=== PATIENT | male | born 1980 | race Caucasian/White ===

== ENCOUNTER 2018-06-21 13:20 | Emergency (ER) | payer BC ==
[~2018-06-21] VITALS: Ht 190.5 cm; Wt 95.3 kg
[2018-06-21] MEDS ORDERED: IV NORMAL SALINE 1000ML BAG 1,000 ML IV ONE ×2 (14:00)
[2018-06-21] MEDS ORDERED: IBUPROFEN 600 MG TABLET. PO ONE (14:00)
[2018-06-21 14:31] LABS: BASO # 0.1 x10^3/uL (0.0-0.2); BASO % 1 % (0-3); EOS % 0 % (0-3); HEMATOCRIT 48.4 % (39.0-53.0); HEMOGLOBIN 15.9 g/dL (13.0-17.5); LYMPH # 0.5 x10^3/uL (1.0-4.8); LYMPH % 5 % (24-48); MEAN CORPUSCULAR HEMOGLOBIN 29 pg (25-35); MEAN CORPUSCULAR HGB CONC 33 g/dL (31-37); MEAN CORPUSCULAR VOLUME 89 fL (79-100); MONO # 1.1 x10^3/uL (0.0-1.1); MONO % 12 % (0-9); NEUT # 7.2 x10^3uL (1.8-7.7); NEUT % 82 % (31-73); PLATELET COUNT 298 x10^3/uL (140-400); RED BLOOD COUNT 5.44 x10^6/uL (4.30-5.70); WHITE BLOOD COUNT 8.8 x10^3/uL (4.0-11.0)
--- NOTE | 2018-06-21 14:41 | PHYS DOC ---
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 Pt reports his head is throbbing- denies vision ch anges/tinnitus. Reports he has felt fatigued and feverish. He reports he hasn't had appetite with less fluid intake. Reports less urine output denying hematuria/dysuria. He denies abd pain, N/V/D, or palpitations. He denies recent travel. He denies exposure to others with similar illness. Pt reports he did meth 2 days ago- denies alcohol. Reports he is a smoker. Pt reports he took tylenol 500mg at 12 p.m. and he had an old Rx for amoxicillin so he took 1 of those also. Review of Systems Review of Systems Constitutional: Reports felt feverish w/chills. Reports generalized fatigue Eyes: Denies change in visual acuity, redness, or eye pain [] HENT: Denies nasal congestion or sore throat [] Respiratory: Reports nonprod. cough with SOA Cardiovascular: Reports chest pain with coughing episodes GI: Denies abdominal pain, nausea, vomiting, bloody stools or diarrhea [] : Denies dysuria or hematuria. Reports less urine output Musculoskeletal: Reports generalized body aches- denies neck/joint stiffness Integument: Denies rash or skin lesions [] Neurologic: Denies focal weakness or sensory changes. Reports throbbing/diffuse AHUJA- denies dizziness Endocrine: Denies polyuria or polydipsia [] All other systems were reviewed and found to be within normal limits, except as documented in this note. Current Medications Current Medications Current Medications Medications (Trade) Dose Ordered Sig/Estrella Start Time Stop Time Status Last Admin Dose Admin Diphenhydramine HCl (Benadryl) 25 mg 1X ONCE 06/21/18 15:00 06/21/18 15:01 DC 06/21/18 15:07 25 MG Ibuprofen (Motrin) 600 mg 1X ONCE 06/21/18 14:00 06/21/18 14:01 DC 06/21/18 14:11 600 MG Metoclopramide HCl (Reglan Vial) 10 mg 1X ONCE 06/21/18 15:00 06/21/18 15:01 DC 06/21/18 15:07 10 MG Sodium Chloride 1,000 ml @ 1,000 mls/hr 1X ONCE 06/21/18 14:00 06/21/18 14:59 DC 06/21/18 15:07 1,000 MLS/HR Allergies Allergies Allergies Coded Allergies Type Severity Reaction Last Updated Verified No Known Drug Allergies 06/21/18 No Physical Exam Physical Exam Constitutional: Well developed, well nourished, no acute distress, non-toxic appearance- anxious. Fatigued appearance HENT: Normocephalic, atraumatic, bilateral ears normal, mucous membranes pink/dry- no pharyngeal swelling/erythema, no oral exudates, nose normal. [] Eyes: PERRLA, EOMI- no pain with eye movements, no nystagmus, conjunctiva normal, no discharge. [] Neck: Normal range of motion, no tenderness/nuchal rigidity, supple, no s tridor/gross adenopathy Cardiovascular:Tachycardic heart rate regular rhythm, no murmur [] Lungs & Thorax: Bilateral breath sounds clear to auscultation- resp. equal/nonlabored Abdomen: Bowel sounds normal, soft, no tenderness/distention, no masses, no pulsatile masses. [] Skin: Warm, dry, no erythema, no rash. [] Back: No tenderness, no CVA tenderness. [] Extremities: No tenderness, no cyanosis, no clubbing, ROM intact, no edema. [] Neurologic: Alert and oriented X 3, normal motor function, normal sensory function, no focal deficits noted. [] Psychologic: Affect normal, judgement normal, anxious during exam- no uncontr ollable behavior. Cooperative during exam Current Patient Data Vital Signs Lab Values Laboratory Tests Test 06/21/18 14:01 06/21/18 14:15 06/21/18 15:05 Influenza Type A Antigen Positive (NEGATIVE) Influenza Type B Antigen Negative (NEGATIVE) White Blood Count 8.8 x10^3/uL (4.0-11.0) Red Blood Count 5.44 x10^6/uL (4.30-5.70) Hemoglobin 15.9 g/dL (13.0-17.5) Hematocrit 48.4 % (39.0-53.0) Mean Corpuscular Volume 89 fL (79-100) Mean Corpuscular Hemoglobin 29 pg (25-35) Mean Corpuscular Hemoglobin Concent 33 g/dL (31-37) Red Cell Distribution Width 14.0 % (11.5-14.5) Platelet Count 298 x10^3/uL (140-400) Neutrophils (%) (Auto) 82 % (31-73) H Lymphocytes (%) (Auto) 5 % (24-48) L Monocytes (%) (Auto) 12 % (0-9) H Eosinophils (%) (Auto) 0 % (0-3) Basophils (%) (Auto) 1 % (0-3) Neutrophils # (Auto) 7.2 x10^3uL (1.8-7.7) Lymphocytes # (Auto) 0.5 x10^3/uL (1.0-4.8) L Monocytes # (Auto) 1.1 x10^3/uL (0.0-1.1) Eosinophils # (Auto) 0.0 x10^3/uL (0.0-0.7) Basophils # (Auto) 0.1 x10^3/uL (0.0-0.2) D-Dimer (Hali) 0.27 ug/mlFEU (0.00-0.50) Sodium Level 136 mmol/L (136-145) Potassium Level 4.1 mmol/L (3.5-5.1) Chloride Level 98 mmol/L (98-107) Carbon Dioxide Level 29 mmol/L (21-32) Anion Gap 9 (6-14) Blood Urea Nitrogen 14 mg/dL (8-26) Creatinine 1.2 mg/dL (0.7-1.3) Estimated GFR (Cockcroft-Gault) 68.5 BUN/Creatinine Ratio 12 (6-20) Glucose Level 108 mg/dL (70-99) H Lactic Acid Level 1.2 mmol/L (0.4-2.0) Calcium Level 10.0 mg/dL (8.5-10.1) Total Bilirubin 0.4 mg/dL (0.2-1.0) Aspartate Amino Transferase (AST) 18 U/L (15-37) Alanine Aminotransferase (ALT) 38 U/L (16-63) Alkaline Phosphatase 61 U/L (46-116) Creatine Kinase 89 U/L (39-308) Creatine Kinase MB (Mass) 1.1 ng/mL (0.0-3.6) Creatine Kinase MB Relative Index 1.2 % (0-4) Troponin I Quantitative < 0.017 ng/mL (0.000-0.055) Total Protein 8.4 g/dL (6.4-8.2) H Albumin 4.2 g/dL (3.4-5.0) Albumin/Globulin Ratio 1.0 (1.0-1.7) Urine Color Yellow Urine Clarity Clear Urine pH 8.0 Urine Specific [place] 1.025 Urine Protein Negative mg/dL (NEG-TRACE) Urine Glucose (UA) Negative mg/dL (NEG) Urine Ketones (Stick) Negative mg/dL (NEG) Urine Blood Negative (NEG) Urine Nitrite Negative (NEG) Urine Bilirubin Negative (NEG) Urine Urobilinogen Dipstick 0.2 mg/dL (0.2 mg/dL) Urine Leukocyte Esterase Negative (NEG) Urine RBC Rare /HPF (0-2) Urine WBC 1-4 /HPF (0-4) Urine Squamous Epithelial Cells Occ /LPF Urine Bacteria 0 /HPF (0-FEW) Urine Mucus Slight /LPF Urine Opiates Screen Neg (NEG) Urine Methadone Screen Neg (NEG) Urine Barbiturates Neg (NEG) Urine Phencyclidine Screen Neg (NEG) Urine Amphetamine/Methamphetamine Pos (NEG) Urine Benzodiazepines Screen Neg (NEG) Urine Cocaine Screen Neg (NEG) Urine Cannabinoids Screen Neg (NEG) Urine Ethyl Alcohol Neg (NEG) Laboratory Tests 06/21/18 14:15 Laboratory Tests 06/21/18 14:15 Microbiology 06/21/18 Blood Culture - Final, Complete NO GROWTH AFTER 5 DAYS EKG EKG EKG obtained 06/21/[address] Browne Sinus tachycardia Rate 117 No STEMI Radiology/Procedures Radiology/Procedures PROCEDURE: CHEST AP ONLY EXAM: CHEST 1 VIEW History: Shortness of breath COMPARISON: None available. TECHNIQUE: Single portable radiograph of the chest FINDINGS: The cardiac silhouette is unremarkable. The lungs are clear bilaterally. The costophrenic sulci are clear and well demarcated. IMPRESSION: No radiographic evidence of an acute cardiopulmonary process. Electronically signed by: Rupert Barrientos MD (06/21/2018 3:59 PM) [id number] DICTATED and SIGNED BY: RUPERT BARRIENTOS MD DATE: 06/21/18 9214 Course & Med Decision Making Course & Med Decision Making Pertinent Labs and Imaging studies reviewed. (See chart for details) 1445: Patient was tested for influenza and was found to be positive for influenza A. This was discussed with patient. Patient is complaining of diffuse headache will provide dose of Benadryl and Reglan along with a second liter of IV fluids. Patient was provided with dose of ibuprofen during initial exam. Labs are pending. Patient remains alert and oriented 3. 1525: Patient was evaluated in the ER for flulike illness and reported he had smoked meth 2 days ago and has not been drinking much fluids since. Patient tested positive for flu A- test results were discussed with pt. EKG with no acute ST elevation/STEMI and troponin <0.017; DDimer 0.27; chest xray no acute findings and labs unremarkable with WBCs NL at 8.8 with NL lactic acid at 1.2. CK NL at 89 which was checked d/t pt's recent drug use. Pt has had no resp. distress with clear bilat. lung sounds in all lung krue[place]. While in the ER he was provided with 2 L normal saline and treatment for headache HR improved foll owing flds. At this time patient reports symptoms much improved he is not anxious and his fiance at bedside states he is feeling much better and appears much improved since receiving txs. Discussed flu diagnosis and drug cessation. Encouraged patient to increase fluid intake. Patient advised on outpatient drug treatment programs and smoking/drug cessation was discussed. Education on symptomatic treatment with Tylenol and ibuprofen. Heart rate 103 O2 sat 100% on RA at this time and patient is in no visible distress. Patient remains alert and oriented 3 and at this time is denying any chest pain or shortness of air. Discussed discharge plan and patient is comfortable with this. Education pro vided on signs and symptoms to return to ER for and discharge instructions were discussed. Will provide patient with prescription for Tamiflu. Chest xray was obtained prior to discharge with report of no acute findings. Dragon Disclaimer Dragon Disclaimer This electronic medical record was generated, in whole or in part, using a voice recognition dictation system. Departure Departure Impression: Primary Impression: Influenza A Additional Impressions: Drug abuse Dehydration Disposition: HOME, SELF-CARE Condition: STABLE Referrals: UNKNOWN PCP NAME (PCP) Patient Instructions: Dehydration, Adult, Drug Abuse and Addiction-SportsMed, Influenza, Adult Additional Instructions: Avoid smoking meth. Consider outpatient treatment program to assist with your addiction and for support. Drink plenty of water and eat well balanced meals. Tylenol and ibuprofen as needed for pain and fever as directed on container. Scripts Oseltamivir Phosphate (TAMIFLU) 75 Mg Capsule 1 CAP PO BID, #10 CAP 0 Refills Prov: ANAM PINEDA APRN 06/21/18 Problem Qualifiers ANAM PINEDA APRN Jun 21, 2018 14:41
[2018-06-21 14:42] LABS: INFLUENZA A PATIENT POSITIVE (NEGATIVE); INFLUENZA B PATIENT NEGATIVE (NEGATIVE)
[2018-06-21 14:43] LABS: CREATININE 1.2 mg/dL (0.7-1.3); GFR 68.5; POTASSIUM 4.1 mmol/L (3.5-5.1)
[2018-06-21 14:50] LABS: ALBUMIN 4.2 g/dL (3.4-5.0); TOTAL BILIRUBIN 0.4 mg/dL (0.2-1.0); TOTAL PROTEIN 8.4 g/dL (6.4-8.2)
[2018-06-21] MEDS ORDERED: METOCLOPRAMIDE HCL 10 MG/2 ML VIAL. IV ONE (15:00)
[2018-06-21] MEDS ORDERED: diphenhydrAMINE 50 MG/ML VIAL IVP ONE (15:00)
[2018-06-21 15:11] LABS: BILIRUBIN,URINE NEGATIVE (NEG); CLARITY,URINE CLEAR; COLOR,URINE YELLOW; NITRITE,URINE NEGATIVE (NEG); PROTEIN,URINE NEGATIVE (NEG-TRACE); UROBILINOGEN,URINE 0.2 mg/dL (0.2 mg/dL)
[2018-06-21 15:16] LABS: BARBITURATES NEG (NEG); BENZODIAZEPINES NEG (NEG); CANNABINOIDS NEG (NEG); COCAINE NEG (NEG); METHADONE NEG (NEG); OPIATES NEG (NEG); PHENCYCLIDINE NEG (NEG)
[2018-06-21 15:17] LABS: RBC,URINE RARE /HPF (0-2)
[2018-06-21 15:18] LABS: BACTERIA,URINE 0 /HPF (0-FEW); SQUAMOUS EPITHELIAL CELL,UR OCC /LPF
[2018-06-21 15:19] LABS: AMPHETAMINE/METHAMPHETAMINE POS (NEG)
[2018-06-21] MEDS ORDERED: OSEL75CA PO (15:41)
--- NOTE | 2018-06-21 16:02 | RAD ---
EXAM: CHEST 1 VIEW History: Shortness of breath COMPARISON: None available. TECHNIQUE: Single portable radiograph of the chest FINDINGS: The cardiac silhouette is unremarkable. The lungs are clear bilaterally. The costophrenic sulci are clear and well demarcated. IMPRESSION: No radiographic evidence of an acute cardiopulmonary process. Electronically signed by: Rupert Barrientos MD (06/21/2018 3:59 PM) [place] [id number]
--- NOTE | 2018-06-21 16:14 | EKG ---
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
[2018-06-21 16:45] VITALS: BP 108/64
== END 2018-06-21 16:46 | disposition home or self-care (01) ==
LOC: ER 13:20
DX: J10.1 Influenza due to other identified influenza virus with other respiratory manifestations (principal); E86.0 Dehydration; F15.20 Other stimulant dependence, uncomplicated
CPT/HCPCS: 36415; 71045; 80053; 80307; 81001; 82553; 83605; 84484; 85025; 85379; 87040; 87804; 93005; 96361; 96374; 96375; 99284; J1200; J2765; J7030

== ENCOUNTER 2018-12-11 18:27 | Emergency (ER) | payer BC ==
[~2018-12-11] VITALS: Ht 190.5 cm; Wt 90.7 kg
[~2018-12-11 18:27] MED LIST: OSEL75CA PO
[2018-12-11] MEDS ORDERED: IV NORMAL SALINE 1000ML BAG 1,000 ML IV ONE ×2 (19:45→21:30)
[2018-12-11 19:47] LABS: BASO % 0 % (0-3); EOS % 0 % (0-3); HEMATOCRIT 43.8 % (39.0-53.0); HEMOGLOBIN 14.7 g/dL (13.0-17.5); LYMPH # 0.7 x10^3/uL (1.0-4.8); LYMPH % 7 % (24-48); MEAN CORPUSCULAR HEMOGLOBIN 30 pg (25-35); MEAN CORPUSCULAR HGB CONC 34 g/dL (31-37); MEAN CORPUSCULAR VOLUME 90 fL (79-100); MONO # 0.7 x10^3/uL (0.0-1.1); MONO % 8 % (0-9); NEUT # 8.5 x10^3/uL (1.8-7.7); NEUT % 85 % (31-73); PLATELET COUNT 305 x10^3/uL (140-400); RED BLOOD COUNT 4.89 x10^6/uL (4.30-5.70); RED CELL DISTRIBUTION WIDTH 14.1 % (11.5-14.5); WHITE BLOOD COUNT 9.9 x10^3/uL (4.0-11.0)
[2018-12-11 19:59] LABS: CREATININE 1.1 mg/dL (0.7-1.3); GFR 75.3; POTASSIUM 3.4 mmol/L (3.5-5.1)
[2018-12-11 20:06] LABS: ALBUMIN 3.7 g/dL (3.4-5.0); ALBUMIN/GLOBULIN RATIO 0.9 (1.0-1.7); TOTAL BILIRUBIN 0.3 mg/dL (0.2-1.0); TOTAL PROTEIN 7.6 g/dL (6.4-8.2)
[2018-12-11 20:15] LABS: % BANDS 8 % (0-9); % LYMPHS 9 % (24-48); % MONOS 5 % (0-10); % SEGS 78 % (35-66); PLT ESTIMATE ADEQUATE (ADEQUATE); PROTHROMBIN TIME PATIENT 12.9 SEC (11.7-14.0)
[2018-12-11] MEDS ORDERED: ONDANSETRON PF 4 MG/2 ML VIAL. IV ONE (20:15)
[2018-12-11 20:18] LABS: D-DIMER 1.02 ug/mlFEU (0.00-0.50)
[2018-12-11] MEDS ORDERED: LIDO:MAALOX 1:1 20 ML SINGLE DOSE. SWSW ONE (21:30)
[2018-12-11] MEDS ORDERED: IOHEXOL 350 MG/ML 100 ML VIAL. IV ONE (21:45)
[2018-12-11] MEDS ORDERED: CONTRAST GIVEN. MC PRN (21:45)
[2018-12-11] MEDS ORDERED: ACETAMINOPHEN 500 MG TABLET PO ONE (22:15)
--- NOTE | 2018-12-11 22:28 | RAD ---
Exam: CT of chest with contrast INDICATION: Elevated d-dimer TECHNIQUE: Sequential axial images through the chest obtained following the administration of 100 mL of Omnipaque 350 IV contrast. Sagittal and coronal reformatted images were reconstructed from the axial data and reviewed. Three-D reformatted images were constructed from the axial data and reviewed. Comparisons: None FINDINGS: Visualized portions of the thyroid are unremarkable. No enlarged mediastinal lymph nodes. Heart size is normal. No pericardial effusion. Thoracic aorta has a normal course and caliber. Pulmonary artery is not enlarged. No pulmonary embolus identified within the main, lobar or segmental pulmonary arteries. Paraseptal emphysematous change noted within the upper lungs. Airways are patent. Strandy opacities at the right lung base likely representing atelectasis. Additional history and less opacity at the right lung base. No pleural effusion or thickening. Visualized upper abdomen is unremarkable. No suspicious osseous lesions or acute fractures. IMPRESSION: 1. No pulmonary embolus identified within the main, lobar or segmental pulmonary arteries. 2. Right lung base atelectasis with groundglass opacity may represent overlying infectious process. Exposure: One or more of the following in the visualized dose reduction techniques were utilized for this examination: 1. Automated exposure control 2. Adjustment of the MA and/or KV according to patient size 3. Use of iterative of reconstructive technique Electronically signed by: Faustino Sarah MD (12/11/2018 10:25 PM) [facility]
--- NOTE | 2018-12-11 22:40 | PHYS DOC ---
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 He states that he returned yesterday after being in the [facility] on a 2 day float trip. During float trip he thinks that he swallowed some of the river water and that is what is making him sick. He smoked some methamphetamine yesterday in an attempt to feel better. Pt states he smokes meth every day. He complains of upper abdominal pain, nausea, and diarrhea. He denies any vomiting. He rates his pain a 10/10 on the pain scale, he denies any alleviating or exacerbating factors, the discomfort is constant. ROS Pt denies fever, cough, shortness of breath, or vomiting. He reports dizziness and states that he has had 2 episodes of diarrhea today. He denies any blood in his stools. He also complains of a headache at this time, he denies any vision changes, numbness, tingling, or weakness. All other ROS is neg unless otherwise noted in HPI. (REYNALDO SHAY APRN) Review of Systems Review of Systems See Above (REYNALDO SHAY APRN) Current Medications Current Medications Current Medications Medications (Trade) Dose Ordered Sig/Estrella Start Time Stop Time Status Last Admin Dose Admin Acetaminophen (Tylenol) 1,000 mg 1X ONCE 12/11/18 22:15 12/11/18 22:16 DC 12/11/18 22:15 1,000 MG Info (CONTRAST GIVEN -- Rx MONITORING) 1 each PRN DAILY PRN 12/11/18 21:45 12/11/18 23:30 DC Iohexol (Omnipaque 350 Mg/ml) 100 ml 1X ONCE 12/11/18 21:45 12/11/18 21:46 DC 12/11/18 22:03 100 ML Multi-Ingredient Mouthwash/Gargle (Gi Cocktail) 20 ml 1X ONCE 12/11/18 21:30 12/11/18 21:31 DC 12/11/18 21:32 20 ML Ondansetron HCl (Zofran) 4 mg 1X ONCE 12/11/18 20:15 12/11/18 20:16 DC 12/11/18 19:43 4 MG Sodium Chloride 1,000 ml @ 1,000 mls/hr 1X ONCE 12/11/18 21:30 12/11/18 22:29 DC 12/11/18 21:22 1,000 MLS/HR (GEOVANNY NÚÑEZ DO) Allergies Allergies Allergies Coded Allergies Type Severity Reaction Last Updated Verified No Known Drug Allergies 06/21/18 No (GEOVANNY NÚÑEZ DO) Physical Exam Physical Exam See Above Constitutional: Well developed, well nourished, no acute distress, non-toxic appearance. [] HENT: Normocephalic, atraumatic, bilateral external ears normal, oropharynx dry, nose normal Eyes: PERRLA, EOMI, conjunctiva normal, no discharge. [] Neck: Normal range of motion, no stridor. [] Cardiovascular:Heart rate tachycardic rhythm, no murmur [] Lungs & Thorax: Bilateral breath sounds clear to auscultation [] Abdomen: Bowel sounds normal, soft, epigastric tenderness, no rebound tenderness, no guarding, no masses, no pulsatile masses. [] Skin: Warm, dry, no erythema, no rash. [] Back: No CVA tenderness. [] Extremities: No cyanosis, no clubbing, ROM intact, no edema. [] Neurologic: Alert and oriented X 3, no focal deficits noted. [] Psychologic: Affect normal, judgement normal, mood normal. [] (REYNALDO SHAY APRN) Current Patient Data Vital Signs Vital Signs Date Time Temp Pulse Resp B/P (MAP) Pulse Ox O2 Delivery O2 Flow Rate FiO2 12/11/18 22:53 76 22 132/79 (96) 93 Room Air 12/11/18 19:04 98.7 98.7 (GEOVANNY NÚÑEZ DO) Lab Values Laboratory Tests Test 12/11/18 19:10 12/11/18 22:43 White Blood Count 9.9 x10^3/uL (4.0-11.0) Red Blood Count 4.89 x10^6/uL (4.30-5.70) Hemoglobin 14.7 g/dL (13.0-17.5) Hematocrit 43.8 % (39.0-53.0) Mean Corpuscular Volume 90 fL (79-100) Mean Corpuscular Hemoglobin 30 pg (25-35) Mean Corpuscular Hemoglobin Concent 34 g/dL (31-37) Red Cell Distribution Width 14.1 % (11.5-14.5) Platelet Count 305 x10^3/uL (140-400) Neutrophils (%) (Auto) 85 % (31-73) H Lymphocytes (%) (Auto) 7 % (24-48) L Monocytes (%) (Auto) 8 % (0-9) Eosinophils (%) (Auto) 0 % (0-3) Basophils (%) (Auto) 0 % (0-3) Neutrophils # (Auto) 8.5 x10^3/uL (1.8-7.7) H Lymphocytes # (Auto) 0.7 x10^3/uL (1.0-4.8) L Monocytes # (Auto) 0.7 x10^3/uL (0.0-1.1) Eosinophils # (Auto) 0.0 x10^3/uL (0.0-0.7) Basophils # (Auto) 0.0 x10^3/uL (0.0-0.2) Segmented Neutrophils % 78 % (35-66) H Band Neutrophils % 8 % (0-9) Lymphocytes % 9 % (24-48) L Monocytes % 5 % (0-10) Platelet Estimate Adequate (ADEQUATE) Prothrombin Time 12.9 SEC (11.7-14.0) Prothrombin Time INR 1.0 (0.8-1.1) Activated Partial Thromboplast Time 29 SEC (24-38) D-Dimer (Hali) 1.02 ug/mlFEU (0.00-0.50) H Sodium Level 138 mmol/L (136-145) Potassium Level 3.4 mmol/L (3.5-5.1) L Chloride Level 100 mmol/L (98-107) Carbon Dioxide Level 30 mmol/L (21-32) Anion Gap 8 (6-14) Blood Urea Nitrogen 12 mg/dL (8-26) Creatinine 1.1 mg/dL (0.7-1.3) Estimated GFR (Cockcroft-Gault) 75.3 BUN/Creatinine Ratio 11 (6-20) Glucose Level 108 mg/dL (70-99) H Calcium Level 9.0 mg/dL (8.5-10.1) Total Bilirubin 0.3 mg/dL (0.2-1.0) Aspartate Amino Transferase (AST) 17 U/L (15-37) Alanine Aminotransferase (ALT) 29 U/L (16-63) Alkaline Phosphatase 65 U/L (46-116) Creatine Kinase 128 U/L (39-308) Creatine Kinase MB (Mass) 1.3 ng/mL (0.0-3.6) Creatine Kinase MB Relative Index 1.0 % (0-4) Troponin I Quantitative < 0.017 ng/mL (0.000-0.055) Total Protein 7.6 g/dL (6.4-8.2) Albumin 3.7 g/dL (3.4-5.0) Albumin/Globulin Ratio 0.9 (1.0-1.7) L Lipase 90 U/L (73-393) Urine Collection Type Unknown Urine Color Yellow Urine Clarity Clear Urine pH 6.0 Urine Specific [place] 1.025 Urine Protein Negative mg/dL (NEG-TRACE) Urine Glucose (UA) Negative mg/dL (NEG) Urine Ketones (Stick) Negative mg/dL (NEG) Urine Blood Negative (NEG) Urine Nitrite Negative (NEG) Urine Bilirubin Negative (NEG) Urine Urobilinogen Dipstick 0.2 mg/dL (0.2 mg/dL) Urine Leukocyte Esterase Trace (NEG) Urine RBC 0 /HPF (0-2) Urine WBC 1-4 /HPF (0-4) Urine Squamous Epithelial Cells Occ /LPF Urine Bacteria 0 /HPF (0-FEW) Urine Mucus Slight /LPF Urine Opiates Screen Neg (NEG) Urine Methadone Screen Neg (NEG) Urine Barbiturates Neg (NEG) Urine Phencyclidine Screen Neg (NEG) Urine Amphetamine/Methamphetamine Pos (NEG) Urine Benzodiazepines Screen Neg (NEG) Urine Cocaine Screen Neg (NEG) Urine Cannabinoids Screen Neg (NEG) Urine Ethyl Alcohol Neg (NEG) Laboratory Tests 12/11/18 19:10 Laboratory Tests 12/11/18 19:10 (GEOVANNY NÚÑEZ DO) EKG EKG 2002- sinus tachycardia, QRS(T) contour abnormality, consider anterior septal myocardial damage, rate of 110, no STEMI read by Dr. Núñez[] (REYNALDO SHAY BACK OFFICE MEDICAL ASSISTANT) Radiology/Procedures Radiology/Procedures PROCEDURE: CT ANGIOGRAPHY CHEST Exam: CT of chest with contrast INDICATION: Elevated d-dimer TECHNIQUE: Sequential axial images through the chest obtained following the administration of 100 mL of Omnipaque 350 IV contrast. Sagittal and coronal reformatted images were reconstructed from the axial data and reviewed. Three-D reformatted images were constructed from the axial data and reviewed. Comparisons: None FINDINGS: Visualized portions of the thyroid are unremarkable. No enlarged mediastinal lymph nodes. Heart size is normal. No pericardial effusion. Thoracic aorta has a normal course and caliber. Pulmonary artery is not enlarged. No pulmonary embolus identified within the main, lobar or segmental pulmonary arteries. Paraseptal emphysematous change noted within the upper lungs. Airways are patent. Strandy opacities at the right lung base likely representing atelectasis. Additional history and less opacity at the right lung base. No pleural effusion or thickening. Visualized upper abdomen is unremarkable. No suspicious osseous lesions or acute fractures. IMPRESSION: 1. No pulmonary embolus identified within the main, lobar or segmental pulmonary arteries. 2. Right lung base atelectasis with groundglass opacity may represent overlying infectious process.[] (REYNALDO SHAY BACK OFFICE MEDICAL ASSISTANT) Course & Med Decision Making Course & Med Decision Making Pertinent Labs and Imaging studies reviewed. (See chart for details) dx: diarrhea, epigastric abdominal pain, headache, diarrhea Pt was given 1L of NS, 4 mg of zofran, a GI cocktail, and 1 gm of tylenol in the ER. His abdominal pain improved after the GI cocktail and his nausea subsided after the zofran. Pt reports decreased headache after Tylenol. VSS. EKG- sinus tachycardia no acute changes, CBC: unremarkable, CMP: K 3.4, glucose 108, otherwise unremarkable; troponin <0.017; UA unremarkable, UDS positive for amphetamines, PT/INR WNL, D-dimer 1.02 CTA chest no PE, R lung base atelectasis with ground glass opacity Pt was prescribed zofran 0.4 mg tablets prn nausea. Diarrhea diet instructions provided. Encouraged pt to stop using methamphetamines. Follow up with Primary care doctor if sx persist, return to the ER if sx worsen. Patient verbalized an understanding of home care, medications, follow-up, and return to ED instructions and was in agreement with the plan of care. [] (REYNALDO SHAY APRN) Dragon Disclaimer Dragon Disclaimer This electronic medical record was generated, in whole or in part, using a voice recognition dictation system. (REYNALDO SHAY APRN) Departure Departure Impression: Primary Impression: Diarrhea Additional Impressions: Epigastric abdominal pain Drug abuse Disposition: HOME, SELF-CARE Condition: STABLE Referrals: UNKNOWN PCP NAME (PCP) Patient Instructions: Abdominal Pain (Nonspecific), Diarrhea, [id number], Diet for Diarrhea, Adult Additional Instructions: Fill the prescription and use as directed for nausea. Increase clear fluids then advance diet using diet for diarrhea instructions provided. STOP USING MET HAMPHETAMINES. Follow up with your doctor if symptoms persist, return to the ER if symptoms worsen. Scripts Ondansetron (ONDANSETRON ODT) 4 Mg Tab.rapdis 1 TAB PO PRN Q6-8HRS PRN for NAUSEA/VOMITING, #16 TAB 0 Refills Prov: REYNALDO SHAY APRN 12/11/18 Attending Signature Attending Signature I have reviewed the PA/FOOD SCIENCE TECHNICIAN's note and plan of care. I was available for consultation as needed during the patient's visit in the emergency department. I agree with the clinical impression, plan, and disposition. (GEOVANNY NÚÑEZ DO) Problem Qualifiers Primary Impression: Diarrhea Diarrhea type: unspecified type Qualified Codes: R19.7 - Diarrhea, unspecified REYNALDO SHAY APRN Dec 11, 2018 22:40 GEOVANNY NÚÑEZ DO Dec 12, 2018 04:04
[2018-12-11 22:48] LABS: BILIRUBIN,URINE NEGATIVE (NEG); CLARITY,URINE CLEAR; COLOR,URINE YELLOW; NITRITE,URINE NEGATIVE (NEG); PROTEIN,URINE NEGATIVE (NEG-TRACE); UROBILINOGEN,URINE 0.2 mg/dL (0.2 mg/dL)
[2018-12-11 22:53] VITALS: BP 132/79
[2018-12-11 22:53] LABS: RBC,URINE 0 /HPF (0-2); SQUAMOUS EPITHELIAL CELL,UR OCC /LPF
[2018-12-11 22:54] LABS: BACTERIA,URINE 0 /HPF (0-FEW)
[2018-12-11 22:55] LABS: AMPHETAMINE/METHAMPHETAMINE POS (NEG); BARBITURATES NEG (NEG); BENZODIAZEPINES NEG (NEG); CANNABINOIDS NEG (NEG); COCAINE NEG (NEG); METHADONE NEG (NEG); OPIATES NEG (NEG); PHENCYCLIDINE NEG (NEG)
[2018-12-11] MEDS ORDERED: ONDA4TAB12 PO (23:17)
--- NOTE | 2018-12-12 06:43 | EKG ---
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
== END 2018-12-11 23:30 | disposition home or self-care (01) ==
LOC: ER 18:27
DX: R10.13 Epigastric pain (principal); R19.7 Diarrhea, unspecified; R42 Dizziness and giddiness; F15.10 Other stimulant abuse, uncomplicated
CPT/HCPCS: 36415; 71275; 80053; 80307; 81001; 82553; 83690; 84484; 85007; 85025; 85379; 85610; 85730; 87086; 93005; 96361; 96374; 99285; J2405; J7030; Q9967; 96375